=== PATIENT | female | born 1970 | race Caucasian/White ===

== ENCOUNTER 2019-02-14 10:02 | Day surgery (SDC) | payer BC ==
[2019-02-12 14:13] VITALS: BMI 30.1
[~2019-02-14 10:02] MED LIST: LACTATED RINGERS 1,000 ML IV SCH; LIDOCAINE 1% 20 ML VIAL (10MG/ML) FOR IV START INTRADERMA PRN
[2019-02-14 11:03] VITALS: RESP 16; TEMP 97.5
[2019-02-14] MEDS ORDERED: PROPOFOL 10 MG/ML 20 ML VIAL IV ONE (11:15)
--- NOTE | 2019-02-14 11:26 | P.PCN ---
Date of Procedure: 02/14/19 Procedure(s) Performed: BRIEF HISTORY: Patient is a 48-year-old pleasant white female scheduled for an elective colonoscopy as a part of evaluation change in bowel habits for the last 6 months duration. PROCEDURE PERFORMED: Colonoscopy. PREOPERATIVE DIAGNOSIS: Change in her mother habits. IV sedation per Anesthesia. PROCEDURE: After informed consent was obtained, the patient, was brought into the endoscopy unit. IV sedation was administered by Anesthesia under continuous monitoring. Digital rectal examination was normal. Initially the Olympus CF-160 flexible video colonoscope was then inserted in the rectum, gradually advanced into the cecum without any difficulty. Careful examination was performed as the scope was gradually being withdrawn. Ileocecal valve and the appendiceal orifice were visualized and appeared normal. Prep was excellent. Mucosa of the cecum, ascending colon, transverse colon, descending colon, sigmoid colon, and rectum appeared normal. Retroflexion was performed in the rectum and no lesions were seen. The patient tolerated the procedure well. IMPRESSION: Normal-appearing colon from rectum to cecum with no evidence of colorectal neoplasia . RECOMMENDATIONS: Findings of this examination were discussed with the patient as well as her family. She was advised to be on a high-fiber diet, take fiber supplements a regular basis. She can have a repeatscreening colonoscopy in 10 years.
[2019-02-14 11:45] VITALS: BP 116/58; PULSE 78
== END 2019-02-14 12:23 | disposition home or self-care (01) ==
LOC: ORWHC2ENDO 10:02
PROVIDERS: ATTEND Internal Medicine Gastroenterology
DX: K59.00 Constipation, unspecified (principal); F41.9 Anxiety disorder, unspecified; Z79.1 Long term (current) use of non-steroidal anti-inflammatories (NSAID); Z79.899 Other long term (current) drug therapy; Z87.891 Personal history of nicotine dependence
CPT/HCPCS: 81025; 45378; J2704

== ENCOUNTER → 2023-08-21 | Outpatient (CLI) | payer OTHER ==
--- NOTE | 2023-08-21 12:02 | XR ---
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 TECHNIQUE: XR knee complete RT; examined in Frontal, lateral and oblique projections. FINDINGS: No evidence of any acute osseous pathology, soft tissue swelling, or joint effusion is no darlene. Tricompartmental osteophyte formation involving the femoral condyles, tibial plateau and patella . Mild joint space narrowing. IMPRESSION: 1. No acute osseous pathology. 2. Mild tricompartmental osteoarthritic changes.
== END | disposition home or self-care (01) ==
LOC: RADXRMAIN 11:06
PROVIDERS: ATTEND Emergency Medicine
DX: S80.01XA Contusion of right knee, initial encounter (principal); M17.11 Unilateral primary osteoarthritis, right knee

== ENCOUNTER 2023-10-16 11:00 | Inpatient (IN) | payer BC ==
[~2023-10-16 11:00] MED LIST changes: +DILTIAZEM 125 MG/25 ML VIAL IV ONE; +DILTIAZEM 5 MG/ML 5 ML VIAL ONE; -LACTATED RINGERS 1,000 ML IV SCH; -LIDOCAINE 1% 20 ML VIAL (10MG/ML) FOR IV START INTRADERMA PRN; +SODIUM CHLORIDE 0.9% 1,000 ML BAG ONE; +SODIUM CHLORIDE 0.9% 100 ML BAG ONE
[2023-10-16] MEDS ORDERED: MAGNESIUM SULFATE-D5W PMX 100 ML IVPB ONE (11:07)
[2023-10-16] MEDS ORDERED: METOPROLOL TARTRATE 25 MG TAB ONE (14:10)
[2023-10-16] MEDS ORDERED: ASPIRIN 81 MG ONE (14:15)
[2023-10-17] MEDS ORDERED: HEPARIN SODIUM 1,000 UN/ML (10ML VL) ONE (00:23)
[2023-10-17] MEDS ORDERED: HEPARIN SOD,PORK IN 0.45% NACL 250 ML IV ONE (00:23)
[2023-10-17] MEDS ORDERED: ASPIRIN 81 MG ONE (08:30)
[2023-10-17] MEDS ORDERED: ONDANSETRON 4 MG TAB ONE (08:31)
[2023-10-17] MEDS ORDERED: METOPROLOL TARTRATE 25 MG TAB ONE (08:31)
== END 2023-10-17 16:56 | disposition home or self-care (01) | DRG 310 ==
LOC: 3SCARD 11:00
PROVIDERS: ADMIT Emergency Medicine; ATTEND Emergency Medicine
DX: I48.0 Paroxysmal atrial fibrillation (principal); R55 Syncope and collapse; F41.9 Anxiety disorder, unspecified; K58.9 Irritable bowel syndrome, unspecified; L80 Vitiligo
CPT/HCPCS: 83036; 93005; 96365; 96375; 99291